=== PATIENT | female | born 1965 | race Caucasian/White ===

== ENCOUNTER 2016-09-22 08:06 | Day surgery (SDC) | payer MEDICAID ==
[2016-09-20 16:13] VITALS: BP 141/73
[2016-09-20 16:39] LABS: BLOOD UREA NITROGEN 14 mg/dL (7-18)
[2016-09-20 16:42] LABS: ASPARTATE AMINO TRANSFERASE 26 U/L (15-37)
[~2016-09-22] VITALS: Ht 175.3 cm; Wt 90.0 kg
[~2016-09-22 08:06] MED LIST: ALBU18HF INH; ALBU18HF PO; ALEN70TA5 PO; BUDE10.2 INH; CHOL200024 PO; CYCL5TAB PO; DUONEB PO; ESCI10TA PO; ESCI20TA10 PO; ESTR0.5T PO; ESTR2TAB PO; FEXO180T5 PO; FLUT1AER PO; GABA600T2 PO; HYDR12.58 PO; HYDR50CA PO; MELO-184 PO; OMEP-110 PO; OMEP20CA9 PO; OXYC5CAP4 PO; QUET300T5 PO; TRAM50TA2 PO; TRAZ100T15 PO; TRAZ50TA18 PO
[2016-09-22 08:57] VITALS: BP 141/73
[2016-09-22] MEDS ORDERED: LACTATED RINGERS 1,000 ML IV SCH (09:03)
[2016-09-22] MEDS ORDERED: FENTANYL PF 250 MCG/5ML ONE (09:34)
[2016-09-22] MEDS ORDERED: HYDROcodone/APAP 5/325 TABLET PO STA (09:34)
[2016-09-22] MEDS ORDERED: MIDAZOLAM 1 MG/ML, 2ML ONE (09:34)
[2016-09-22] MEDS ORDERED: BUPIVACAINE/PF 0.5% ONE (10:01)
[2016-09-22] MEDS ORDERED: LIDOCAINE/PF 1%, 30ML ONE (10:01)
[2016-09-22] MEDS ORDERED: PROPOFOL 10 MG/ML, 20ML ONE (10:11)
[2016-09-22] MEDS ORDERED: PHENYLEPHRINE 10 MG/ML ONE (10:11)
[2016-09-22] MEDS ORDERED: CEFAZOLIN 1,000 MG ONE (10:11)
[2016-09-22] MEDS ORDERED: DEXAMETHASONE 4 MG/ML, 1ML ONE (10:11)
[2016-09-22] MEDS ORDERED: ONDANSETRON 2MG/ML, 2ML ONE (10:11)
[2016-09-22] MEDS ORDERED: HYDROmorphone 2 MG/ML, 1ML ONE (11:52)
[2016-09-22] MEDS ORDERED: OXYcodone 5 MG/5 ML ORAL.SOL UDC ONE (11:52)
[2016-09-22] MEDS ORDERED: FENTANYL PF 100 MCG/2ML ONE (11:52)
[2016-09-22] MEDS: HYDROmorphone 1 MG/ML, 1ML IV PRN ×4 (11:54→12:45)
[2016-09-22] MEDS: FENTANYL PF 100 MCG/2ML IV PRN ×2 (11:56→12:17)
[2016-09-22] MEDS ORDERED: ACETAMINOPHEN 325 MG TABLET PO PRN (12:00)
[2016-09-22] MEDS ORDERED: PROMETHAZINE 25 MG/ML, 1ML IV PRN (12:00)
[2016-09-22] MEDS ORDERED: MIDAZOLAM 1 MG/ML, 2ML IV PRN (12:00)
[2016-09-22] MEDS ORDERED: hydrALAzine 20 MG/ML, 1ML IV PRN (12:00)
[2016-09-22] MEDS ORDERED: OXYcodone 5 MG/5 ML ORAL.SOL UDC PO PRN (12:00)
[2016-09-22] MEDS ORDERED: METOCLOPRAMIDE 5 MG/ML, 2ML IV PRN (12:00)
[2016-09-22] MEDS ORDERED: ONDANSETRON 2MG/ML, 2ML IVPush PRN (12:00)
[2016-09-22] MEDS ORDERED: MEPERIDINE/PF 25MG/0.5ML IVPush PRN (12:00)
[2016-09-22] MEDS ORDERED: LABETALOL 5MG/ML, 20ML IV PRN (12:00)
[2016-09-22] MEDS ORDERED: ACETAMINOPHEN 325 MG TABLET ONE (12:01)
[2016-09-22] MEDS ORDERED: ACETAMINOPHEN 650 MG/20.3 ML UDC ONE (12:01)
[2016-09-22] MEDS ORDERED: PROMETHAZINE 25 MG/ML, 1ML ONE (12:05)
== END 2016-09-22 14:35 ==
LOC: OUT 08:06
PROVIDERS: ATTEND Orthopaedic Surgery Foot and Ankle Surgery
DX: S92.322K Displaced fracture of second metatarsal bone, left foot, subsequent encounter for fracture with nonunion (principal); S92.332K Displaced fracture of third metatarsal bone, left foot, subsequent encounter for fracture with nonunion; F17.210 Nicotine dependence, cigarettes, uncomplicated; J45.909 Unspecified asthma, uncomplicated; X58.XXXD Exposure to other specified factors, subsequent encounter; Z90.710 Acquired absence of both cervix and uterus
CPT/HCPCS: 28322; 36415; 73630; 76001; 80053; C1713; J0690; J1100; J1170; J2250; J2370; J2405; J2550; J2704; J3010; J3490; J7120

== ENCOUNTER 2017-02-17 14:46 | Inpatient (IN) | payer MEDICAID ==
[~2017-02-17] VITALS: Ht 175.3 cm; Wt 98.8 kg
[~2017-02-17 14:46] MED LIST changes: +FEXO180T15 PO; -FEXO180T5 PO; -MELO-184 PO; +MELO15TA24 PO; +OXYC5CAP2 PO; -OXYC5CAP4 PO
[2017-02-17 15:23] LABS: HEMATOCRIT 42.3 % (34.6-47.8); HEMOGLOBIN 14.6 g/dL (11.7-16.4); WHITE BLOOD COUNT 6.9 x10^3/uL (3.4-10)
[2017-02-17 15:30] LABS: BLOOD UREA NITROGEN 11 mg/dL (7-18)
[2017-02-17] MEDS ORDERED: SODIUM CHLORIDE FLUSH 10ML SYR IVF ONE ×2 (15:30→18:30)
[2017-02-17] MEDS ORDERED: SODIUM CHLORIDE 0.9% 1,000ML IVBOLUS ONE (15:30)
[2017-02-17 15:31] LABS: ASPARTATE AMINO TRANSFERASE 18 U/L (15-37)
[2017-02-17 15:37] LABS: ACETAMINOPHEN < 2 mcg/mL (10-30)
[2017-02-17 16:08] LABS: DAU SCREEN DISCLAIMER
[2017-02-17] MEDS ORDERED: SODIUM CHLORIDE 0.9% 1,000 ML IV ONE ×2 (16:23→18:00)
[2017-02-17] MEDS ORDERED: MAALOX/HYOSCYAMINE/LIDOCAINE 45 ML BTL ONE (16:26)
[2017-02-17] MEDS ORDERED: ONDANSETRON 2MG/ML, 2ML ONE ×2 (16:26→19:29)
[2017-02-17] MEDS ORDERED: MAALOX/HYOSCYAMINE/LIDOCAINE 45 ML BTL PO ONE (16:30)
[2017-02-17] MEDS ORDERED: ONDANSETRON ODT 4 MG PO ONE (16:30)
[2017-02-17] MEDS ORDERED: DEXTROSE 50%, 50ML SYRINGE IVPush PRN (17:30)
[2017-02-17] MEDS ORDERED: DEXTROSE 4 GM TAB.CHEW PO PRN (17:30)
[2017-02-17] MEDS ORDERED: GLUCAGON 1 MG IM PRN (17:30)
[2017-02-17] MEDS ORDERED: LORazepam 2 MG/ML, 1ML IV PRN ×2 (17:30)
[2017-02-17] MEDS ORDERED: LORazepam 1MG TABLET PO PRN ×2 (17:30)
[2017-02-17] MEDS: SODIUM CHLORIDE 0.9% 1,000 ML IV SCH (17:32)
[2017-02-17] MEDS ORDERED: ALBUTEROL SULFATE 2.5 MG/3 ML ONE (18:59)
[2017-02-17] MEDS ORDERED: ENOXAPARIN 40 MG/0.4 ML ONE (19:09)
[2017-02-17] MEDS ORDERED: LORazepam 2 MG/ML, 1ML ONE (19:10)
[2017-02-17] MEDS: LORazepam 2 MG/ML, 1ML IV PRN ×2 (19:15→22:14)
[2017-02-17] MEDS: ENOXAPARIN 40 MG/0.4 ML SQ SCH (19:15)
[2017-02-17] MEDS: ONDANSETRON 2MG/ML, 2ML IV PRN (19:35)
[2017-02-17] MEDS: ALBUTEROL SULFATE 2.5 MG/3 ML NPPB SCH (20:00)
[2017-02-17] MEDS: POTASSIUM CHLORIDE 20 MEQ, MAGNESIUM SULFATE 1 GM, FOLIC ACID 1 MG, THIAMINE 100 MG, MV... IV SCH (20:23)
[2017-02-17] MEDS: SODIUM CHLORIDE FLUSH 10ML SYR IVF SCH (21:00)
[2017-02-17] MEDS ORDERED: ALBUTEROL SULFATE 2.5 MG/3 ML NPPB SCH (21:00)
[2017-02-17] MEDS ORDERED: PLEASE ENTER ALLERGIES MC SCH ×2 (21:00)
[2017-02-17] MEDS ORDERED: MAGNESIUM SULFATE PMX 2GM/50ML 50 ML IV ONE (22:00)
[2017-02-17 22:13] LABS: ASPARTATE AMINO TRANSFERASE 16 U/L (15-37); BLOOD UREA NITROGEN 10 mg/dL (7-18)
[2017-02-17 22:21] VITALS: BP 123/56
[2017-02-17 22:33] VITALS: BP 123/56
[2017-02-17] MEDS: PANTOPRAZOLE 20MG TABLET PO SCH (23:49)
[2017-02-17] MEDS: GABAPENTIN 300 MG CAPSULE PO SCH (23:57)
[2017-02-18 01:44] VITALS: BP 138/83
[2017-02-18] MEDS: ONDANSETRON 2MG/ML, 2ML IV PRN ×4 (01:52→21:16)
[2017-02-18] MEDS: LORazepam 2 MG/ML, 1ML IV PRN ×7 (01:52→20:17)
[2017-02-18] MEDS: ALBUTEROL SULFATE 2.5 MG/3 ML NPPB PRN (04:51)
[2017-02-18 05:31] LABS: HEMATOCRIT 38.8 % (34.6-47.8); HEMOGLOBIN 13.2 g/dL (11.7-16.4)
[2017-02-18 05:41] LABS: ASPARTATE AMINO TRANSFERASE 17 U/L (15-37); BLOOD UREA NITROGEN 10 mg/dL (7-18)
[2017-02-18] MEDS: ALBUTEROL SULFATE 2.5 MG/3 ML NPPB SCH ×3 (07:00→20:47)
[2017-02-18] MEDS: SODIUM CHLORIDE FLUSH 10ML SYR IVF SCH ×2 (08:42→20:16)
[2017-02-18] MEDS: PANTOPRAZOLE 20MG TABLET PO SCH ×2 (08:42→17:18)
[2017-02-18] MEDS: GABAPENTIN 300 MG CAPSULE PO SCH ×2 (08:43→20:16)
[2017-02-18 08:54] VITALS: BP 144/88
[2017-02-18] MEDS ORDERED: POTASSIUM CHLORIDE 20 MEQ TAB.ER.PRT PO ONE (11:30)
[2017-02-18] MEDS: KETOROLAC 30 MG/1 ML IVPush PRN ×2 (11:40→18:41)
[2017-02-18] MEDS: SODIUM CHLORIDE 0.9% 1,000 ML IV SCH (11:42)
[2017-02-18 12:23] VITALS: BP 136/80
[2017-02-18] MEDS: METHOCARBAMOL 500 MG TABLET PO SCH ×2 (15:10→20:16)
[2017-02-18 16:58] VITALS: BP 125/95
[2017-02-18] MEDS: ENOXAPARIN 40 MG/0.4 ML SQ SCH (18:42)
[2017-02-18] MEDS: POTASSIUM CHLORIDE 20 MEQ, MAGNESIUM SULFATE 1 GM, FOLIC ACID 1 MG, THIAMINE 100 MG, MV... IV SCH (18:42)
[2017-02-18 20:21] VITALS: BP 134/56
[2017-02-18] MEDS ORDERED: DIAZEPAM 10 MG TABLET PO ONE (22:00)
[2017-02-18] MEDS ORDERED: DIAZEPAM 5 MG TABLET PO ONE (22:00)
[2017-02-18] MEDS: BACLOFEN 10 MG TABLET PO SCH (22:09)
[2017-02-18 22:11] VITALS: BP 128/79
[2017-02-19 01:59] VITALS: BP 134/88
[2017-02-19] MEDS ORDERED: DIAZEPAM 5 MG TABLET ONE ×3 (03:31→16:16)
[2017-02-19] MEDS: ONDANSETRON 2MG/ML, 2ML IV PRN ×3 (03:35→17:10)
[2017-02-19] MEDS: DIAZEPAM 10 MG TABLET PO PRN ×4 (03:39→21:13)
[2017-02-19] MEDS: ALBUTEROL SULFATE 2.5 MG/3 ML NPPB PRN (03:55)
[2017-02-19] MEDS: SODIUM CHLORIDE 0.9% 1,000 ML IV SCH ×2 (04:54→17:32)
[2017-02-19 05:03] VITALS: BP 125/69
[2017-02-19] MEDS: METHOCARBAMOL 500 MG TABLET PO SCH ×2 (05:14→10:32)
[2017-02-19 06:18] LABS: BLOOD UREA NITROGEN 8 mg/dL (7-18)
[2017-02-19 07:07] VITALS: BP 132/85
[2017-02-19] MEDS: ALBUTEROL SULFATE 2.5 MG/3 ML NPPB SCH ×3 (07:30→20:00)
[2017-02-19] MEDS: GABAPENTIN 300 MG CAPSULE PO SCH ×2 (08:20→21:13)
[2017-02-19] MEDS: PANTOPRAZOLE 20MG TABLET PO SCH ×2 (08:20→17:10)
[2017-02-19] MEDS: BACLOFEN 10 MG TABLET PO SCH ×2 (08:20→21:13)
[2017-02-19] MEDS: SODIUM CHLORIDE FLUSH 10ML SYR IVF SCH ×2 (08:21→21:14)
[2017-02-19] MEDS: LORazepam 0.5MG TABLET PO PRN ×2 (10:38→18:32)
[2017-02-19 16:20] VITALS: BP 123/81
[2017-02-19] MEDS: ENOXAPARIN 40 MG/0.4 ML SQ SCH (17:10)
[2017-02-19] MEDS: POTASSIUM CHLORIDE 20 MEQ, MAGNESIUM SULFATE 1 GM, FOLIC ACID 1 MG, THIAMINE 100 MG, MV... IV SCH (17:49)
[2017-02-19 19:31] VITALS: BP 127/85
[2017-02-19] MEDS: DOXYCYCLINE 100MG TABLET PO SCH (21:13)
[2017-02-19] MEDS: methylPREDNISolone SOD SUCC 125 MG/2 ML IVPush SCH (21:15)
[2017-02-20] MEDS: ONDANSETRON 2MG/ML, 2ML IV PRN ×3 (00:32→13:11)
[2017-02-20] MEDS: LORazepam 1MG TABLET PO PRN ×4 (00:32→18:36)
[2017-02-20] MEDS: MAALOX/HYOSCYAMINE/LIDOCAINE 45 ML BTL PO PRN ×2 (00:47→21:26)
[2017-02-20] MEDS: ALBUTEROL SULFATE 2.5 MG/3 ML NPPB PRN (01:00)
[2017-02-20 01:52] VITALS: BP 149/97
[2017-02-20 01:53] VITALS: BP 111/72
[2017-02-20] MEDS: SODIUM CHLORIDE 0.9% 1,000 ML IV SCH ×2 (03:04→13:11)
[2017-02-20] MEDS: DIAZEPAM 10 MG TABLET PO PRN ×4 (03:05→21:23)
[2017-02-20] MEDS: methylPREDNISolone SOD SUCC 125 MG/2 ML IVPush SCH ×3 (03:05→21:23)
[2017-02-20 05:26] LABS: ASPARTATE AMINO TRANSFERASE 11 U/L (15-37); BLOOD UREA NITROGEN 14 mg/dL (7-18)
[2017-02-20] MEDS: ALBUTEROL SULFATE 2.5 MG/3 ML NPPB SCH ×6 (06:35→23:50)
[2017-02-20 07:25] VITALS: BP 157/74
[2017-02-20] MEDS: FLUTICASONE/VILANTEROL 100-25MCG/INH INH SCH (08:49)
[2017-02-20] MEDS: PANTOPRAZOLE 20MG TABLET PO SCH ×2 (09:00→17:00)
[2017-02-20] MEDS: SODIUM CHLORIDE FLUSH 10ML SYR IVF SCH ×2 (09:00→21:23)
[2017-02-20] MEDS: DOXYCYCLINE 100MG TABLET PO SCH ×2 (09:01→21:24)
[2017-02-20] MEDS: BACLOFEN 10 MG TABLET PO SCH ×2 (09:01→21:24)
[2017-02-20] MEDS: GABAPENTIN 300 MG CAPSULE PO SCH ×2 (09:01→21:24)
[2017-02-20 12:42] VITALS: BP 140/89
[2017-02-20] MEDS: POTASSIUM CHLORIDE 20 MEQ, MAGNESIUM SULFATE 1 GM, FOLIC ACID 1 MG, THIAMINE 100 MG, MV... IV SCH (18:36)
[2017-02-20 19:43] VITALS: BP 152/91
[2017-02-20] MEDS: ENOXAPARIN 40 MG/0.4 ML SQ SCH (21:23)
[2017-02-21] MEDS: LORazepam 1MG TABLET PO PRN (01:49)
[2017-02-21] MEDS: methylPREDNISolone SOD SUCC 125 MG/2 ML IVPush SCH ×4 (02:39→21:27)
[2017-02-21 02:49] VITALS: BP 148/82
[2017-02-21] MEDS: ALBUTEROL SULFATE 2.5 MG/3 ML NPPB SCH ×2 (03:00→07:05)
[2017-02-21 03:19] VITALS: BP 134/84
[2017-02-21 05:22] LABS: ASPARTATE AMINO TRANSFERASE 8 U/L (15-37); BLOOD UREA NITROGEN 17 mg/dL (7-18)
[2017-02-21 07:17] VITALS: BP 119/85
[2017-02-21] MEDS: GABAPENTIN 300 MG CAPSULE PO SCH ×2 (08:20→21:27)
[2017-02-21] MEDS: DOXYCYCLINE 100MG TABLET PO SCH ×2 (08:20→21:27)
[2017-02-21] MEDS: PANTOPRAZOLE 20MG TABLET PO SCH ×2 (08:20→16:10)
[2017-02-21] MEDS: ONDANSETRON 2MG/ML, 2ML IV PRN ×3 (08:20→21:29)
[2017-02-21] MEDS: BACLOFEN 10 MG TABLET PO SCH ×2 (08:20→21:27)
[2017-02-21] MEDS: DIAZEPAM 10 MG TABLET PO PRN ×3 (08:20→21:28)
[2017-02-21] MEDS: SODIUM CHLORIDE FLUSH 10ML SYR IVF SCH ×2 (08:21→21:00)
[2017-02-21] MEDS: FLUTICASONE/VILANTEROL 100-25MCG/INH INH SCH (10:23)
[2017-02-21] MEDS: ALBUTEROL/IPRATROPIUM 2.5MG/0.5MG, 3 ML NPPB SCH ×2 (10:50→14:30)
[2017-02-21 13:51] VITALS: BP 157/81
[2017-02-21] MEDS: MULTIVITAMIN 1 TABLET PO SCH (15:00)
[2017-02-21] MEDS: FOLIC ACID 1 MG TABLET PO SCH (15:00)
[2017-02-21] MEDS: THIAMINE 100MG TABLET PO SCH (15:00)
[2017-02-21] MEDS: MUPIROCIN OINT 2%, 22GM TP SCH ×2 (16:10→21:26)
[2017-02-21] MEDS ORDERED: LORazepam 2 MG/ML, 1ML IM PRN (17:00)
[2017-02-21] MEDS ORDERED: LORazepam 2 MG/ML, 1ML IM ONE (17:00)
[2017-02-21] MEDS ORDERED: LORazepam 2 MG/ML, 1ML IVPush ONE (17:00)
[2017-02-21] MEDS ORDERED: SODIUM CHLORIDE 0.9% 1,000 ML IV SCH ×2 (18:00)
[2017-02-21 19:03] VITALS: BP 145/94
[2017-02-21] MEDS ORDERED: LORazepam 2 MG/ML, 1ML IV PRN (21:00)
[2017-02-21] MEDS: ENOXAPARIN 40 MG/0.4 ML SQ SCH (21:27)
[2017-02-21] MEDS: MAGNESIUM OXIDE 400 MG TABLET PO SCH (21:27)
[2017-02-22 02:08] VITALS: BP 137/96
[2017-02-22] MEDS: methylPREDNISolone SOD SUCC 125 MG/2 ML IVPush SCH ×4 (02:45→21:32)
[2017-02-22 06:25] VITALS: BP 135/74
[2017-02-22] MEDS: ALBUTEROL/IPRATROPIUM 2.5MG/0.5MG, 3 ML NPPB SCH ×4 (07:00→19:55)
[2017-02-22 09:10] LABS: ASPARTATE AMINO TRANSFERASE 8 U/L (15-37); BLOOD UREA NITROGEN 19 mg/dL (7-18)
[2017-02-22] MEDS: FLUTICASONE/VILANTEROL 100-25MCG/INH INH SCH (09:25)
[2017-02-22] MEDS: MUPIROCIN OINT 2%, 22GM TP SCH ×3 (09:25→21:34)
[2017-02-22] MEDS: GABAPENTIN 300 MG CAPSULE PO SCH ×3 (09:26→21:32)
[2017-02-22] MEDS: MULTIVITAMIN 1 TABLET PO SCH (09:26)
[2017-02-22] MEDS: ONDANSETRON 2MG/ML, 2ML IV PRN ×2 (09:26→15:45)
[2017-02-22] MEDS: BACLOFEN 10 MG TABLET PO SCH ×2 (09:26→21:31)
[2017-02-22] MEDS: FOLIC ACID 1 MG TABLET PO SCH (09:26)
[2017-02-22] MEDS: MAGNESIUM OXIDE 400 MG TABLET PO SCH ×2 (09:26→21:31)
[2017-02-22] MEDS: PANTOPRAZOLE 20MG TABLET PO SCH ×2 (09:26→17:05)
[2017-02-22] MEDS: SODIUM CHLORIDE FLUSH 10ML SYR IVF SCH ×2 (09:26→21:00)
[2017-02-22] MEDS: DOXYCYCLINE 100MG TABLET PO SCH ×2 (09:26→21:33)
[2017-02-22] MEDS: THIAMINE 100MG TABLET PO SCH (09:26)
[2017-02-22] MEDS: DIAZEPAM 10 MG TABLET PO PRN (10:55)
[2017-02-22] MEDS ORDERED: POTASSIUM CHLORIDE 20 MEQ TAB.ER.PRT PO ONE (11:30)
[2017-02-22] MEDS ORDERED: FUROSEMIDE 40 MG/4 ML IV ONE (11:30)
[2017-02-22] MEDS: QUETIAPINE 25MG TABLET PO PRN (15:00)
[2017-02-22 15:11] VITALS: BP 143/94
[2017-02-22] MEDS: LORazepam 2 MG/ML, 1ML IV PRN ×2 (17:09→21:34)
[2017-02-22 17:10] VITALS: BP 136/82
[2017-02-22 19:12] VITALS: BP 121/77
[2017-02-22] MEDS ORDERED: ZOLPIDEM 5MG TABLET PO SCH (21:00)
[2017-02-22] MEDS: QUETIAPINE 100MG TABLET PO SCH (21:33)
[2017-02-22] MEDS: ENOXAPARIN 40 MG/0.4 ML SQ SCH (21:34)
[2017-02-23 00:22] VITALS: BP 117/79
[2017-02-23] MEDS: ZOLPIDEM 5MG TABLET PO PRN ×2 (00:31→21:37)
[2017-02-23] MEDS: methylPREDNISolone SOD SUCC 125 MG/2 ML IVPush SCH ×4 (02:59→18:24)
[2017-02-23] MEDS: ONDANSETRON 2MG/ML, 2ML IV PRN ×2 (03:27→15:21)
[2017-02-23] MEDS: LORazepam 2 MG/ML, 1ML IV PRN ×4 (03:27→18:24)
[2017-02-23 05:52] LABS: ASPARTATE AMINO TRANSFERASE 8 U/L (15-37); BLOOD UREA NITROGEN 24 mg/dL (7-18)
[2017-02-23] MEDS: QUETIAPINE 25MG TABLET PO PRN ×2 (06:17→17:07)
[2017-02-23] MEDS: ALBUTEROL/IPRATROPIUM 2.5MG/0.5MG, 3 ML NPPB SCH ×4 (07:00→19:04)
[2017-02-23 07:08] VITALS: BP 129/80
[2017-02-23] MEDS: MULTIVITAMIN 1 TABLET PO SCH (08:21)
[2017-02-23] MEDS: DOXYCYCLINE 100MG TABLET PO SCH ×2 (08:21→21:38)
[2017-02-23] MEDS: MAGNESIUM OXIDE 400 MG TABLET PO SCH ×2 (08:21→21:36)
[2017-02-23] MEDS: GABAPENTIN 300 MG CAPSULE PO SCH (08:21)
[2017-02-23] MEDS: BACLOFEN 10 MG TABLET PO SCH ×2 (08:21→21:36)
[2017-02-23] MEDS: FOLIC ACID 1 MG TABLET PO SCH (08:21)
[2017-02-23] MEDS: THIAMINE 100MG TABLET PO SCH (08:21)
[2017-02-23] MEDS: PANTOPRAZOLE 20MG TABLET PO SCH ×2 (08:22→16:01)
[2017-02-23] MEDS: FLUTICASONE/VILANTEROL 100-25MCG/INH INH SCH (08:22)
[2017-02-23] MEDS: SODIUM CHLORIDE FLUSH 10ML SYR IVF SCH ×2 (08:22→21:00)
[2017-02-23] MEDS: MUPIROCIN OINT 2%, 22GM TP SCH ×3 (08:22→21:38)
[2017-02-23 14:00] VITALS: BP 139/76
[2017-02-23] MEDS: GABAPENTIN 400 MG CAPSULE PO SCH ×2 (16:01→21:37)
[2017-02-23 19:22] VITALS: BP 158/82
[2017-02-23] MEDS: QUETIAPINE 100MG TABLET PO SCH (21:37)
[2017-02-23] MEDS: ENOXAPARIN 40 MG/0.4 ML SQ SCH (21:38)
[2017-02-23] MEDS: ALBUTEROL SULFATE 2.5 MG/3 ML NPPB PRN (22:35)
[2017-02-24] MEDS: methylPREDNISolone SOD SUCC 125 MG/2 ML IVPush SCH ×4 (01:07→18:23)
[2017-02-24] MEDS: LORazepam 2 MG/ML, 1ML IV PRN ×5 (01:08→21:54)
[2017-02-24 01:22] VITALS: BP 121/86
[2017-02-24] MEDS: ONDANSETRON 2MG/ML, 2ML IV PRN ×3 (04:52→18:06)
[2017-02-24 06:25] VITALS: BP 132/85
[2017-02-24] MEDS: ALBUTEROL/IPRATROPIUM 2.5MG/0.5MG, 3 ML NPPB SCH ×4 (06:51→18:57)
[2017-02-24] MEDS: PANTOPRAZOLE 20MG TABLET PO SCH ×2 (08:02→15:37)
[2017-02-24] MEDS: FLUTICASONE/VILANTEROL 100-25MCG/INH INH SCH (08:03)
[2017-02-24] MEDS: DOXYCYCLINE 100MG TABLET PO SCH ×2 (08:03→20:54)
[2017-02-24] MEDS: QUETIAPINE 25MG TABLET PO PRN ×2 (08:03→14:46)
[2017-02-24] MEDS: MAGNESIUM OXIDE 400 MG TABLET PO SCH ×2 (08:03→20:54)
[2017-02-24] MEDS: THIAMINE 100MG TABLET PO SCH (08:03)
[2017-02-24] MEDS: SODIUM CHLORIDE FLUSH 10ML SYR IVF SCH ×2 (08:03→21:00)
[2017-02-24] MEDS: FOLIC ACID 1 MG TABLET PO SCH (08:03)
[2017-02-24] MEDS: GABAPENTIN 400 MG CAPSULE PO SCH ×3 (08:03→20:54)
[2017-02-24] MEDS: BACLOFEN 10 MG TABLET PO SCH ×2 (08:03→20:54)
[2017-02-24] MEDS: MULTIVITAMIN 1 TABLET PO SCH (08:04)
[2017-02-24] MEDS: MUPIROCIN OINT 2%, 22GM TP SCH ×3 (08:04→21:00)
[2017-02-24 13:23] VITALS: BP 147/67
[2017-02-24] MEDS: MAALOX/HYOSCYAMINE/LIDOCAINE 45 ML BTL PO PRN (14:47)
[2017-02-24 15:35] VITALS: BP 139/84
[2017-02-24 19:06] VITALS: BP 151/99
[2017-02-24] MEDS: ENOXAPARIN 40 MG/0.4 ML SQ SCH (21:00)
[2017-02-24] MEDS: ZOLPIDEM 5MG TABLET PO PRN (21:53)
[2017-02-24] MEDS: QUETIAPINE 100MG TABLET PO SCH (21:53)
[2017-02-25] MEDS: methylPREDNISolone SOD SUCC 125 MG/2 ML IVPush SCH ×2 (00:32→06:01)
[2017-02-25 04:16] VITALS: BP 152/101
[2017-02-25] MEDS: LORazepam 2 MG/ML, 1ML IV PRN (04:43)
[2017-02-25] MEDS: ONDANSETRON 2MG/ML, 2ML IV PRN (04:43)
[2017-02-25 07:01] VITALS: BP_SYST 162; BP_SYST 168; BP_DIAS 105; BP_DIAS 95
[2017-02-25] MEDS: BACLOFEN 10 MG TABLET PO SCH ×2 (07:18→20:22)
[2017-02-25] MEDS: QUETIAPINE 25MG TABLET PO PRN ×2 (07:18→12:02)
[2017-02-25] MEDS: THIAMINE 100MG TABLET PO SCH (07:18)
[2017-02-25] MEDS: PANTOPRAZOLE 20MG TABLET PO SCH ×2 (07:18→18:01)
[2017-02-25] MEDS: DOXYCYCLINE 100MG TABLET PO SCH ×2 (07:18→20:23)
[2017-02-25] MEDS: GABAPENTIN 400 MG CAPSULE PO SCH ×3 (07:18→20:23)
[2017-02-25] MEDS: MULTIVITAMIN 1 TABLET PO SCH (07:18)
[2017-02-25] MEDS: MAGNESIUM OXIDE 400 MG TABLET PO SCH ×2 (07:18→20:22)
[2017-02-25] MEDS: FLUTICASONE/VILANTEROL 100-25MCG/INH INH SCH (07:19)
[2017-02-25] MEDS: FOLIC ACID 1 MG TABLET PO SCH (07:19)
[2017-02-25] MEDS: MUPIROCIN OINT 2%, 22GM TP SCH ×3 (07:19→20:23)
[2017-02-25] MEDS: SODIUM CHLORIDE FLUSH 10ML SYR IVF SCH ×2 (07:19→21:00)
[2017-02-25] MEDS: ALBUTEROL/IPRATROPIUM 2.5MG/0.5MG, 3 ML NPPB SCH ×4 (07:20→19:18)
[2017-02-25] MEDS: ONDANSETRON ODT 4 MG PO PRN (12:01)
[2017-02-25] MEDS: methylPREDNISolone SOD SUCC 40 MG/ML IV SCH ×2 (12:02→18:01)
[2017-02-25 12:48] VITALS: BP 115/53
[2017-02-25] MEDS ORDERED: LORazepam 1MG TABLET ONE (14:05)
[2017-02-25] MEDS: LORazepam 0.5MG TABLET PO PRN ×2 (14:13→21:10)
[2017-02-25 20:06] VITALS: BP 168/97
[2017-02-25] MEDS: QUETIAPINE 100MG TABLET PO SCH (20:23)
[2017-02-25] MEDS: ENOXAPARIN 40 MG/0.4 ML SQ SCH (20:23)
[2017-02-25] MEDS: ZOLPIDEM 5MG TABLET PO PRN (20:24)
[2017-02-25] MEDS: MAALOX/HYOSCYAMINE/LIDOCAINE 45 ML BTL PO PRN (20:25)
[2017-02-26] MEDS: methylPREDNISolone SOD SUCC 40 MG/ML IV SCH ×4 (00:06→20:38)
[2017-02-26] MEDS: LORazepam 0.5MG TABLET PO PRN ×5 (01:28→22:15)
[2017-02-26 01:29] VITALS: BP 127/79
[2017-02-26 07:08] VITALS: BP 173/110
[2017-02-26] MEDS: PANTOPRAZOLE 20MG TABLET PO SCH ×2 (08:20→17:10)
[2017-02-26] MEDS: BACLOFEN 10 MG TABLET PO SCH ×2 (08:20→21:17)
[2017-02-26] MEDS: MAGNESIUM OXIDE 400 MG TABLET PO SCH ×2 (08:21→20:39)
[2017-02-26] MEDS: GABAPENTIN 400 MG CAPSULE PO SCH ×4 (08:21→20:39)
[2017-02-26] MEDS: DOXYCYCLINE 100MG TABLET PO SCH ×2 (08:22→20:39)
[2017-02-26] MEDS: SODIUM CHLORIDE FLUSH 10ML SYR IVF SCH ×2 (08:22→20:38)
[2017-02-26] MEDS: MULTIVITAMIN 1 TABLET PO SCH (08:22)
[2017-02-26] MEDS: FOLIC ACID 1 MG TABLET PO SCH (08:22)
[2017-02-26] MEDS: THIAMINE 100MG TABLET PO SCH (08:22)
[2017-02-26] MEDS: FLUTICASONE/VILANTEROL 100-25MCG/INH INH SCH (08:23)
[2017-02-26] MEDS: ALBUTEROL/IPRATROPIUM 2.5MG/0.5MG, 3 ML NPPB SCH ×4 (09:50→20:00)
[2017-02-26] MEDS ORDERED: LORazepam 1MG TABLET ONE (11:11)
[2017-02-26] MEDS: ONDANSETRON ODT 4 MG PO PRN (11:27)
[2017-02-26] MEDS: MUPIROCIN OINT 2%, 22GM TP SCH ×3 (11:29→20:39)
[2017-02-26 13:31] VITALS: BP 131/93
[2017-02-26] MEDS: QUETIAPINE 25MG TABLET PO PRN (15:04)
[2017-02-26 18:37] VITALS: BP 133/98
[2017-02-26] MEDS: ENOXAPARIN 40 MG/0.4 ML SQ SCH (20:38)
[2017-02-26] MEDS: QUETIAPINE 100MG TABLET PO SCH (20:39)
[2017-02-26] MEDS: ZOLPIDEM 5MG TABLET PO PRN (20:40)
[2017-02-26] MEDS: MAALOX/HYOSCYAMINE/LIDOCAINE 45 ML BTL PO PRN (20:40)
[2017-02-26] MEDS ORDERED: PLEASE ENTER ALLERGIES MC SCH ×2 (21:00)
[2017-02-27 01:28] VITALS: BP 136/80
[2017-02-27] MEDS: methylPREDNISolone SOD SUCC 40 MG/ML IV SCH ×2 (03:11→08:10)
[2017-02-27] MEDS: QUETIAPINE 25MG TABLET PO PRN ×3 (05:01→16:33)
[2017-02-27 06:39] VITALS: BP 142/100
[2017-02-27] MEDS: ALBUTEROL/IPRATROPIUM 2.5MG/0.5MG, 3 ML NPPB SCH ×4 (06:48→18:31)
[2017-02-27] MEDS: DOXYCYCLINE 100MG TABLET PO SCH ×2 (08:11→20:30)
[2017-02-27] MEDS: THIAMINE 100MG TABLET PO SCH (08:11)
[2017-02-27] MEDS: BACLOFEN 10 MG TABLET PO SCH ×2 (08:11→20:30)
[2017-02-27] MEDS: MULTIVITAMIN 1 TABLET PO SCH (08:11)
[2017-02-27] MEDS: GABAPENTIN 400 MG CAPSULE PO SCH ×3 (08:11→20:30)
[2017-02-27] MEDS: PANTOPRAZOLE 20MG TABLET PO SCH ×2 (08:11→16:33)
[2017-02-27] MEDS: FLUTICASONE/VILANTEROL 100-25MCG/INH INH SCH (08:12)
[2017-02-27] MEDS: SODIUM CHLORIDE FLUSH 10ML SYR IVF SCH ×2 (08:14→20:29)
[2017-02-27] MEDS: MUPIROCIN OINT 2%, 22GM TP SCH ×3 (08:25→20:31)
[2017-02-27] MEDS: MAGNESIUM OXIDE 400 MG TABLET PO SCH ×2 (08:40→20:30)
[2017-02-27] MEDS: FOLIC ACID 1 MG TABLET PO SCH (08:40)
[2017-02-27 12:55] VITALS: BP 135/101
[2017-02-27] MEDS: LORazepam 0.5MG TABLET PO PRN (19:20)
[2017-02-27 20:24] VITALS: BP 141/106
[2017-02-27] MEDS: ENOXAPARIN 40 MG/0.4 ML SQ SCH (20:29)
[2017-02-27] MEDS: ZOLPIDEM 5MG TABLET PO PRN (20:31)
[2017-02-27] MEDS: QUETIAPINE 100MG TABLET PO SCH (20:31)
[2017-02-27] MEDS ORDERED: GABAPENTIN 400 MG CAPSULE PO SCH (21:00)
[2017-02-28] MEDS: QUETIAPINE 25MG TABLET PO PRN ×3 (00:40→14:20)
[2017-02-28] MEDS: ALBUTEROL SULFATE 2.5 MG/3 ML NPPB PRN (00:46)
[2017-02-28] MEDS ORDERED: MAALOX/HYOSCYAMINE/LIDOCAINE 45 ML BTL PO PRN (01:00)
[2017-02-28 01:01] VITALS: BP 122/70
[2017-02-28] MEDS: LORazepam 0.5MG TABLET PO PRN (03:29)
[2017-02-28] MEDS: ALBUTEROL/IPRATROPIUM 2.5MG/0.5MG, 3 ML NPPB SCH ×3 (07:18→15:00)
[2017-02-28 07:42] VITALS: BP 128/92
[2017-02-28] MEDS: PANTOPRAZOLE 20MG TABLET PO SCH (09:04)
[2017-02-28] MEDS: BACLOFEN 10 MG TABLET PO SCH (09:04)
[2017-02-28] MEDS: MULTIVITAMIN 1 TABLET PO SCH (09:05)
[2017-02-28] MEDS: FOLIC ACID 1 MG TABLET PO SCH (09:05)
[2017-02-28] MEDS: MAGNESIUM OXIDE 400 MG TABLET PO SCH (09:05)
[2017-02-28] MEDS: DOXYCYCLINE 100MG TABLET PO SCH (09:06)
[2017-02-28] MEDS: THIAMINE 100MG TABLET PO SCH (09:06)
[2017-02-28] MEDS: GABAPENTIN 400 MG CAPSULE PO SCH (09:07)
[2017-02-28] MEDS: ONDANSETRON ODT 4 MG PO PRN ×2 (09:07→15:38)
[2017-02-28] MEDS: SODIUM CHLORIDE FLUSH 10ML SYR IVF SCH (09:08)
[2017-02-28] MEDS: MUPIROCIN OINT 2%, 22GM TP SCH (11:45)
[2017-02-28] MEDS: FLUTICASONE/VILANTEROL 100-25MCG/INH INH SCH (11:45)
[2017-02-28 13:06] VITALS: BP 108/72
[2017-02-28] MEDS ORDERED: GABA-827 PO (16:59)
[2017-02-28] MEDS ORDERED: FLUT1AER INH (16:59)
[2017-02-28] MEDS ORDERED: QUET100T PO (16:59)
[2017-02-28] MEDS ORDERED: TRAM50TA2 PO (16:59)
[2017-02-28] MEDS ORDERED: TIOT18CA INH (16:59)
[2017-02-28] MEDS ORDERED: MULT1TAB60 PO (16:59)
[2017-02-28] MEDS ORDERED: ONDA4TAB13 PO (16:59)
[2017-02-28] MEDS ORDERED: THIA100T6 PO (16:59)
[2017-02-28] MEDS ORDERED: FOLI-17 PO (16:59)
[2017-02-28] MEDS ORDERED: QUET25TA PO (16:59)
[2017-02-28] MEDS ORDERED: PRED20TA PO (16:59)
[2017-02-28] MEDS ORDERED: MAGN400T26 PO (16:59)
[2017-02-28] MEDS ORDERED: IPRA3AMP NPPB (16:59)
[2017-02-28] MEDS ORDERED: ZOLP5TAB PO (17:02)
[2017-02-28] MEDS ORDERED: HCTZ MC SCH (17:30)
[2017-02-28] MEDS ORDERED: HYDROCHLOROTHIAZIDE 12.5 MG CAPSULE PO SCH (17:30)
== END 2017-02-28 19:16 | disposition home or self-care (01) | DRG 918 ==
LOC: ED 15:40 → EDIP 17:07 → 4WST 21:09 → 4EST 02-19 10:10 → 4WST 02-25 17:50
PROVIDERS: ADMIT Internal Medicine; ATTEND Internal Medicine
DX: T42.6X2A Poisoning by other antiepileptic and sedative-hypnotic drugs, intentional self-harm, initial encounter (principal); J90 Pleural effusion, not elsewhere classified; E87.2 Acidosis; E87.1 Hypo-osmolality and hyponatremia; J44.1 Chronic obstructive pulmonary disease with (acute) exacerbation; F10.239 Alcohol dependence with withdrawal, unspecified; E87.6 Hypokalemia; F17.200 Nicotine dependence, unspecified, uncomplicated; F31.9 Bipolar disorder, unspecified; F41.9 Anxiety disorder, unspecified; I10 Essential (primary) hypertension; K21.9 Gastro-esophageal reflux disease without esophagitis; K29.70 Gastritis, unspecified, without bleeding; M19.90 Unspecified osteoarthritis, unspecified site; M81.0 Age-related osteoporosis without current pathological fracture; Z81.1 Family history of alcohol abuse and dependence; Z81.8 Family history of other mental and behavioral disorders
CPT/HCPCS: 36415; 71010; 71275; 80048; 80053; 80307; 80329; 81003; 82962; 83690; 83735; 84100; 84295; 84443; 85025; 87046; 87081; 87324; 87899; 93005; 93306; 94640; 96361; 96372; 96374; 96375; J1650; J1885; J1940; J2405; J3411; J3475; J3480; J7042; J7613; J7620; Q0162; G0479; G0480; J2060; J2920; J2930; J7030; J7512

== ENCOUNTER 2017-07-24 13:00 | Inpatient (IN) | payer MEDICAID ==
[~2017-07-24] VITALS: Ht 175.3 cm; Wt 94.2 kg
[~2017-07-24 13:00] MED LIST changes: +FLUT1AER INH; +FOLI-17 PO; +GABA-827 PO; +IPRA3AMP NPPB; +MAGN400T26 PO; +MULT1TAB60 PO; +ONDA4TAB13 PO; +PRED20TA PO; +QUET100T PO; +QUET25TA PO; +THIA100T6 PO; +TIOT18CA INH; +ZOLP5TAB PO
[2017-07-24] MEDS ORDERED: SODIUM CHLORIDE 0.9% 1,000ML IVBOLUS ONE ×2 (14:00→19:00)
[2017-07-24] MEDS ORDERED: THIAMINE 100MG TABLET PO ONE (14:00)
[2017-07-24] MEDS ORDERED: FAMOTIDINE 20 MG/2 ML IVP ONE (14:00)
[2017-07-24] MEDS ORDERED: LORazepam 2 MG/ML, 1ML IVPush ONE (14:00)
[2017-07-24] MEDS ORDERED: ONDANSETRON 2MG/ML, 2ML IVPush ONE (14:00)
[2017-07-24 14:12] LABS: BASOPHILS # (AUTO) 0.04 x10^3/uL (0-0.1); BASOPHILS % (AUTO) 0 % (0-1); EOSINOPHILS # (AUTO) 0.04 x10^3/uL (0-0.4); EOSINOPHILS % (AUTO) 0 % (1-7); LYMPHOCYTES # (AUTO) 4.36 x10^3/uL (1-3.4); LYMPHOCYTES % (AUTO) 33 % (22-44); MD NO; MEAN CORPUSCULAR HEMOGLOBIN 31.4 pg (27.0-34.8); MEAN CORPUSCULAR HGB CONC 33.3 g/dL (32.4-35.8); MEAN CORPUSCULAR VOLUME 94.3 fL (80-100); MEAN PLATELET VOLUME 7.2 fL (7.4-10.4); MONOCYTES # (AUTO) 0.64 x10^3/uL (0.2-0.8); MONOCYTES % (AUTO) 5 % (2-9); NEUTROPHILS # (AUTO) 8.17 x10^3/uL (1.8-6.8); NEUTROPHILS % (AUTO) 62 % (42-75); PLATELET COUNT 348 x10^3/uL (130-400); RED BLOOD COUNT 6.14 x10^6/uL (3.82-5.3); RED CELL DISTRIBUTION WIDTH 15.4 % (9.6-15.2)
[2017-07-24 14:23] LABS: ALBUMIN 4.5 g/dL (3.4-5.0); ANION GAP 25 mmol/L (5-15); CALCIUM 10.2 mg/dL (8.5-10.1); CHLORIDE 100 mmol/L (98-107)
[2017-07-24 14:26] LABS: ALANINE AMINOTRANSFERASE 19 U/L (12-78); ALKALINE PHOSPHATASE 166 U/L (45-117); BILIRUBIN,TOTAL 0.5 mg/dL (0.2-1.0); CREATININE 1.34 mg/dL (0.55-1.02); TOTAL PROTEIN 9.3 g/dL (6.4-8.2)
[2017-07-24] MEDS ORDERED: FAMOTIDINE 20 MG/2 ML ONE (14:36)
[2017-07-24] MEDS ORDERED: LORazepam 2 MG/ML, 1ML ONE ×2 (14:36→17:12)
[2017-07-24] MEDS ORDERED: ONDANSETRON 2MG/ML, 2ML ONE (14:36)
[2017-07-24 16:10] LABS: SALICYLATE LEVEL 3.4 mg/dL (2.8-20.0)
[2017-07-24 16:12] LABS: ACETAMINOPHEN < 2 mcg/mL (10-30)
[2017-07-24 16:12] LABS: MICROSCOPIC INDICATED
[2017-07-24 16:18] LABS: AMPHETAMINE SCREEN, URINE Negative (Negative); BARBITURATE SCREEN, URINE Negative (Negative); BENZODIAZEPINE SCREEN, URINE Negative (Negative); CANNABINOID SCREEN, URINE Negative (Negative); COCAINE SCREEN, URINE Negative (Negative); METHADONE SCREEN, URINE Negative (Negative); OPIATE SCREEN, URINE Negative (Negative)
[2017-07-24 16:23] LABS: CULTURE INDICATED? YES
[2017-07-24] MEDS ORDERED: METOCLOPRAMIDE 5 MG/ML, 2ML ONE (16:25)
[2017-07-24] MEDS ORDERED: METOCLOPRAMIDE 5 MG/ML, 2ML IVPush ONE (16:30)
[2017-07-24] MEDS: LORazepam 2 MG/ML, 1ML IVPush PRN ×2 (17:27→19:17)
[2017-07-24] MEDS ORDERED: OMNIPAQUE 350 MG/ML, 100ML BOTTLE ONE (18:19)
[2017-07-24] MEDS ORDERED: SODIUM CHLORIDE 0.9% 1,000 ML IV ONE (19:00)
[2017-07-24] MEDS: SODIUM CHLORIDE 0.9% 1,000 ML IV SCH (19:57)
[2017-07-24] MEDS ORDERED: MELOXICAM 15 MG TABLET PO SCH ×2 (20:00→21:00)
[2017-07-24] MEDS ORDERED: DOCUSATE 100 MG CAPSULE PO PRN (20:00)
[2017-07-24] MEDS ORDERED: TEMPLATE NON-FORMULARY MED. (Cyclobenzaprine Hcl** 5 MG) PO PRN (20:00)
[2017-07-24] MEDS ORDERED: ALBUTEROL SULFATE 2.5 MG/3 ML NPPB PRN (20:30)
[2017-07-24] MEDS ORDERED: CYCLOBENZAPRINE MC SCH (20:30)
[2017-07-24] MEDS ORDERED: MELOXICAM MC SCH (20:30)
[2017-07-24 20:33] LABS: TROPONIN I < 0.015 ng/mL (0.000-0.045)
[2017-07-24 20:34] VITALS: BP 126/88
[2017-07-24] MEDS ORDERED: CYCLOBENZAPRINE 10 MG TABLET PO PRN (21:30)
[2017-07-24] MEDS: QUETIAPINE 100MG TABLET PO SCH (22:51)
[2017-07-24] MEDS: GABAPENTIN 400 MG CAPSULE PO SCH (22:51)
[2017-07-24] MEDS: ONDANSETRON 2MG/ML, 2ML IVPush PRN (22:52)
[2017-07-24] MEDS: ZOLPIDEM 5MG TABLET PO PRN (22:52)
[2017-07-25 02:00] VITALS: BP 118/82
[2017-07-25] MEDS: LORazepam 2 MG/ML, 1ML IVPush PRN ×6 (02:26→21:46)
[2017-07-25 02:39] LABS: ANION GAP 12 mmol/L (5-15); CALCIUM 7.9 mg/dL (8.5-10.1); CHLORIDE 101 mmol/L (98-107); CREATININE 0.86 mg/dL (0.55-1.02)
[2017-07-25 02:47] LABS: BASOPHILS # (AUTO) 0.01 x10^3/uL (0-0.1); BASOPHILS % (AUTO) 0 % (0-1); EOSINOPHILS # (AUTO) 0.03 x10^3/uL (0-0.4); EOSINOPHILS % (AUTO) 0 % (1-7); LYMPHOCYTES # (AUTO) 1.98 x10^3/uL (1-3.4); LYMPHOCYTES % (AUTO) 32 % (22-44); MD NO; MEAN CORPUSCULAR HEMOGLOBIN 31.6 pg (27.0-34.8); MEAN CORPUSCULAR HGB CONC 33.6 g/dL (32.4-35.8); MEAN CORPUSCULAR VOLUME 94.1 fL (80-100); MEAN PLATELET VOLUME 7.4 fL (7.4-10.4); MONOCYTES # (AUTO) 0.75 x10^3/uL (0.2-0.8); MONOCYTES % (AUTO) 12 % (2-9); NEUTROPHILS # (AUTO) 3.52 x10^3/uL (1.8-6.8); NEUTROPHILS % (AUTO) 56 % (42-75); PLATELET COUNT 219 x10^3/uL (130-400); RED BLOOD COUNT 4.42 x10^6/uL (3.82-5.3); RED CELL DISTRIBUTION WIDTH 15.6 % (9.6-15.2)
[2017-07-25 02:48] LABS: TROPONIN I < 0.015 ng/mL (0.000-0.045)
[2017-07-25] MEDS: ONDANSETRON 2MG/ML, 2ML IVPush PRN ×3 (04:58→18:26)
[2017-07-25] MEDS: SODIUM CHLORIDE 0.9% 1,000 ML IV SCH ×2 (05:44→15:21)
[2017-07-25 06:35] VITALS: BP 126/84
[2017-07-25] MEDS: THIAMINE 100MG TABLET PO SCH (08:31)
[2017-07-25] MEDS: FOLIC ACID 1 MG TABLET PO SCH (08:31)
[2017-07-25] MEDS: GABAPENTIN 400 MG CAPSULE PO SCH ×3 (08:31→20:31)
[2017-07-25] MEDS: MULTIVITAMIN 1 TABLET PO SCH (08:31)
[2017-07-25] MEDS: PANTOPRAZOLE 40 MG IV IVPush SCH (08:31)
[2017-07-25] MEDS ORDERED: BUDE10.2 INH (11:18)
[2017-07-25] MEDS ORDERED: ALBU18HF INH (11:18)
[2017-07-25] MEDS ORDERED: LORazepam 1MG TABLET PO PRN ×2 (11:30)
[2017-07-25] MEDS ORDERED: MAALOX/HYOSCYAMINE/LIDOCAINE 45 ML BTL PO PRN (11:30)
[2017-07-25 12:03] VITALS: BP 111/63
[2017-07-25] MEDS ORDERED: ALBUTEROL SULFATE 2.5 MG/3 ML HHN SCH (16:00)
[2017-07-25 18:56] VITALS: BP 152/62
[2017-07-25 20:03] VITALS: BP 127/82
[2017-07-25] MEDS: ZOLPIDEM 5MG TABLET PO PRN (20:32)
[2017-07-25] MEDS: QUETIAPINE 100MG TABLET PO SCH (20:32)
[2017-07-25] MEDS ORDERED: TEMPLATE NON-FORMULARY MED. (Budesonide/Formoterol Fumarate (Symbicort 160-4.5 Mcg Inhaler INH SCH (21:00)
[2017-07-26] MEDS: LORazepam 2 MG/ML, 1ML IVPush PRN ×3 (00:54→08:31)
[2017-07-26] MEDS: SODIUM CHLORIDE 0.9% 1,000 ML IV SCH (00:54)
[2017-07-26 01:35] VITALS: BP 100/66
[2017-07-26] MEDS: ONDANSETRON 2MG/ML, 2ML IVPush PRN ×4 (02:16→22:13)
[2017-07-26 05:12] LABS: CHLORIDE 112 mmol/L (98-107)
[2017-07-26 05:26] LABS: ANION GAP 7 mmol/L (5-15); CALCIUM 7.8 mg/dL (8.5-10.1)
[2017-07-26 07:50] VITALS: BP 106/72
[2017-07-26] MEDS: PANTOPRAZOLE 40 MG IV IVPush SCH (08:10)
[2017-07-26] MEDS: THIAMINE 100MG TABLET PO SCH (08:10)
[2017-07-26] MEDS: MULTIVITAMIN 1 TABLET PO SCH (08:10)
[2017-07-26] MEDS: GABAPENTIN 400 MG CAPSULE PO SCH ×3 (08:10→20:17)
[2017-07-26] MEDS: FOLIC ACID 1 MG TABLET PO SCH (08:10)
[2017-07-26] MEDS: FLUTICASONE/VILANTEROL 200-25MCG/INH INH SCH (09:37)
[2017-07-26] MEDS ORDERED: LORazepam 2 MG/ML, 1ML IVPush PRN (11:00)
[2017-07-26] MEDS: ENOXAPARIN 40 MG/0.4 ML SQ SCH (11:12)
[2017-07-26] MEDS: LORazepam 0.5MG TABLET PO PRN ×3 (11:20→20:17)
[2017-07-26 14:34] VITALS: BP 110/78
[2017-07-26] MEDS ORDERED: ALBUTEROL SULFATE 2.5 MG/3 ML HHN PRN (16:00)
[2017-07-26 19:13] VITALS: BP 156/87
[2017-07-26] MEDS: QUETIAPINE 100MG TABLET PO SCH (20:17)
[2017-07-26] MEDS ORDERED: ZOLPIDEM 10MG TABLET PO ONE (21:30)
[2017-07-27 01:17] VITALS: BP 150/85
[2017-07-27] MEDS: LORazepam 0.5MG TABLET PO PRN ×2 (01:27→06:37)
[2017-07-27] MEDS ORDERED: VENL37.52 PO (04:19)
[2017-07-27] MEDS: ONDANSETRON 2MG/ML, 2ML IVPush PRN (04:27)
[2017-07-27 05:54] LABS: CLOSTRIDIUM DIFFICILE ANTIGEN NEGATIVE; CLOSTRIDIUM DIFFICILE TOXIN NEGATIVE (Negative)
[2017-07-27 08:40] VITALS: BP 155/91
[2017-07-27] MEDS: MULTIVITAMIN 1 TABLET PO SCH (09:42)
[2017-07-27] MEDS: THIAMINE 100MG TABLET PO SCH (09:42)
[2017-07-27] MEDS: GABAPENTIN 400 MG CAPSULE PO SCH (09:42)
[2017-07-27] MEDS: FOLIC ACID 1 MG TABLET PO SCH (09:42)
[2017-07-27] MEDS: PANTOPRAZOLE 40 MG IV IVPush SCH (09:43)
[2017-07-27] MEDS: FLUTICASONE/VILANTEROL 200-25MCG/INH INH SCH (09:43)
[2017-07-27] MEDS: ENOXAPARIN 40 MG/0.4 ML SQ SCH (09:47)
== END 2017-07-27 13:07 | disposition home or self-care (01) | DRG 896 ==
LOC: ED 17:13 → EDIP 19:05 → 4WST 20:15
PROVIDERS: ADMIT Internal Medicine; ATTEND Internal Medicine
DX: F10.239 Alcohol dependence with withdrawal, unspecified (principal); N17.0 Acute kidney failure with tubular necrosis; E87.1 Hypo-osmolality and hyponatremia; F33.9 Major depressive disorder, recurrent, unspecified; R45.851 Suicidal ideations; E16.2 Hypoglycemia, unspecified; E86.0 Dehydration; F17.210 Nicotine dependence, cigarettes, uncomplicated; G89.29 Other chronic pain; I10 Essential (primary) hypertension; J44.9 Chronic obstructive pulmonary disease, unspecified; K21.9 Gastro-esophageal reflux disease without esophagitis; K29.20 Alcoholic gastritis without bleeding; M19.90 Unspecified osteoarthritis, unspecified site; Z79.51 Long term (current) use of inhaled steroids; Z79.899 Other long term (current) drug therapy; Z90.710 Acquired absence of both cervix and uterus; Z91.5 Personal history of self-harm; Z90.49 Acquired absence of other specified parts of digestive tract
CPT/HCPCS: 36415; 74177; 80048; 80053; 80307; 80329; 81001; 83735; 84484; 85025; 87086; 87324; 93005; 94640; 96361; 96374; 96375; 96376; J1650; J2405; J7613; Q9967; C9113; G0480; J2060; J2765; J7030; S0028

== ENCOUNTER 2019-07-23 00:50 | Emergency (ER) | payer MEDICAID ==
[~2019-07-23] VITALS: Ht 175.3 cm; Wt 80.6 kg
[~2019-07-23 00:50] MED LIST changes: -ALEN70TA5 PO; +ALEN70TA6 PO; -GABA600T2 PO; +GABA600T7 PO; -HYDR12.58 PO; +HYDROCHLOROTH12.5 MG PO; -IPRA3AMP NPPB; +IPRA3AMP30 NPPB; -QUET25TA PO; +QUET25TA7 PO; -THIA100T6 PO; +THIA100T67 PO; +TRAZ-175 PO; -TRAZ100T15 PO; -TRAZ50TA18 PO; +TRAZ50TA66 PO; +VENL37.52 PO
[2019-07-23] MEDS ORDERED: SODIUM CHLORIDE 0.9% 1,000ML IVBOLUS ONE (01:00)
[2019-07-23] MEDS ORDERED: CLON0.5T PO (01:20)
[2019-07-23 01:32] LABS: BASOPHILS # (AUTO) 0.08 x10^3/uL (0-0.1); BASOPHILS % (AUTO) 1 % (0-1); EOSINOPHILS % (AUTO) 1 % (1-7); LYMPHOCYTES # (AUTO) 1.39 x10^3/uL (1-3.4); LYMPHOCYTES % (AUTO) 14 % (22-44); MD NO; MEAN CORPUSCULAR HEMOGLOBIN 32.8 pg (27.0-34.8); MEAN CORPUSCULAR VOLUME 96.3 fL (80-100); MEAN PLATELET VOLUME 7.5 fL (7.4-10.4); MONOCYTES # (AUTO) 0.98 x10^3/uL (0.2-0.8); MONOCYTES % (AUTO) 10 % (2-9); NEUTROPHILS # (AUTO) 7.59 x10^3/uL (1.8-6.8); NEUTROPHILS % (AUTO) 75 % (42-75); PLATELET COUNT 261 x10^3/uL (130-400); RED BLOOD COUNT 4.76 x10^6/uL (3.82-5.3)
[2019-07-23 01:38] LABS: ALANINE AMINOTRANSFERASE 30 U/L (12-78); ALBUMIN 3.7 g/dL (3.4-5.0); ANION GAP 16 mmol/L (5-15); CALCIUM 8.7 mg/dL (8.5-10.1); CHLORIDE 100 mmol/L (98-107); CREATININE 0.79 mg/dL (0.55-1.02)
[2019-07-23 01:42] LABS: ALKALINE PHOSPHATASE 154 U/L (45-117); TOTAL PROTEIN 7.8 g/dL (6.4-8.2); TROPONIN I < 0.015 ng/mL (0.000-0.045)
[2019-07-23 02:29] VITALS: BP 125/86
[2019-07-23] MEDS ORDERED: LORazepam 2 MG/ML, 1ML ONE (02:47)
[2019-07-23] MEDS ORDERED: LORazepam 2 MG/ML, 1ML IVPush ONE (03:00)
== END 2019-07-23 03:23 | disposition home or self-care (01) ==
LOC: ED 02:30
DX: R11.2 Nausea with vomiting, unspecified (principal); Z00.00 Encounter for general adult medical examination without abnormal findings; F10.239 Alcohol dependence with withdrawal, unspecified; I10 Essential (primary) hypertension; J45.909 Unspecified asthma, uncomplicated; M81.0 Age-related osteoporosis without current pathological fracture; F17.200 Nicotine dependence, unspecified, uncomplicated; Y90.9 Presence of alcohol in blood, level not specified
CPT/HCPCS: 36415; 71045; 80053; 80307; 83690; 84484; 85025; 93005; 96361; 96374; 99284; J2060; J7030

== ENCOUNTER 2019-09-21 18:41 | Emergency (ER) | payer MEDICAID ==
[~2019-09-21] VITALS: Ht 175.3 cm; Wt 77.3 kg
[~2019-09-21 18:41] MED LIST changes: +CLON0.5T PO
--- NOTE | 2019-09-21 18:45 | NUR ---
PT BIB [facility] FROM HOME. PT STATES SHE STARTED HAVING ABD PAIN EARLY THIS MORNING AFTER BINGE DRINKING. NEIGHBOR CALLED EMS. PT INTOXICATED, POOR HISTORIAN. MEDICATED WITH ZOFRAN 4MG ODT BY EMS, NO VOMITING NOTED BY EMS. VS PER EMS: 135/75, HR 104, 97% ON RA, BS 64. PT ARRIVES TO ED A&OX4, FORGETFUL AT TIMES.
[2019-09-21] MEDS ORDERED: SODIUM CHLORIDE FLUSH 10ML SYR IVF ONE (19:00)
--- NOTE | 2019-09-21 19:01 | NUR ---
REPORTED TO DANN BARRIGA.
--- NOTE | 2019-09-21 19:16 | NUR ---
Report received from Lizett BARRIGA. PIV placed and labs drawn. Pt on pulse ox/HR monitor. Lights dimmed for comfort.
[2019-09-21 19:17] LABS: BASOPHILS # (AUTO) 0.03 x10^3/uL (0-0.1); BASOPHILS % (AUTO) 1 % (0-1); EOSINOPHILS # (AUTO) 0.02 x10^3/uL (0-0.4); EOSINOPHILS % (AUTO) 0 % (1-7); LYMPHOCYTES # (AUTO) 1.57 x10^3/uL (1-3.4); LYMPHOCYTES % (AUTO) 28 % (22-44); MD NO; MEAN CORPUSCULAR HEMOGLOBIN 32.5 pg (27.0-34.8); MEAN CORPUSCULAR HGB CONC 33.6 g/dL (32.4-35.8); MEAN CORPUSCULAR VOLUME 96.7 fL (80-100); MEAN PLATELET VOLUME 7.2 fL (7.4-10.4); MONOCYTES # (AUTO) 0.17 x10^3/uL (0.2-0.8); MONOCYTES % (AUTO) 3 % (2-9); NEUTROPHILS # (AUTO) 3.94 x10^3/uL (1.8-6.8); NEUTROPHILS % (AUTO) 69 % (42-75); PLATELET COUNT 243 x10^3/uL (130-400); RED BLOOD COUNT 5.16 x10^6/uL (3.82-5.3); RED CELL DISTRIBUTION WIDTH 13.8 % (9.6-15.2)
[2019-09-21 19:36] LABS: ALANINE AMINOTRANSFERASE 26 U/L (12-78); ALBUMIN 4.1 g/dL (3.4-5.0); ANION GAP 25 mmol/L (5-15); CALCIUM 9.1 mg/dL (8.5-10.1); CHLORIDE 102 mmol/L (98-107); CREATININE 0.89 mg/dL (0.55-1.02)
[2019-09-21 19:38] LABS: ALKALINE PHOSPHATASE 161 U/L (45-117); BILIRUBIN,TOTAL 0.6 mg/dL (0.2-1.0); TOTAL PROTEIN 8.4 g/dL (6.4-8.2)
[2019-09-21 19:47] VITALS: BP 116/88
--- NOTE | 2019-09-21 19:48 | NUR ---
Pt noted to be 87% on RA while sleeping. Pt easily awakened. Pt placed on 2L NC with sats at 92%.
--- NOTE | 2019-09-21 20:09 | NUR ---
Pt found to have taken off oxygen, BP cuff and pulse ox probe. Items placed back on pt and pt reminded to keep them on.
--- NOTE | 2019-09-21 20:29 | NUR ---
Pt once again removed all monitoring items and oxygen. Pt given water per ERP. Pt educated multiple times to take small sips.
--- NOTE | 2019-09-21 20:40 | NUR ---
Pt tolerated a couple sips of water without emesis. MD updated and at bedside.
[2019-09-21] MEDS ORDERED: ONDANSETRON 2MG/ML, 2ML ONE (20:54)
[2019-09-21] MEDS ORDERED: ONDANSETRON 2MG/ML, 2ML IVPush ONE (21:00)
--- NOTE | 2019-09-21 21:05 | NUR ---
[place] given. Pt stating she does not want to be d/c'd. Pt educated on home care and expected care in an ER. Pt demanding to see MD before PIV removed. MD at bedside and re-educated pt on plan for d/c. PIV removed. Pt given d/c papers. Addendum: 09/21/19 at 2107 by MRICH Pt with sats >92% on RA
--- NOTE | 2019-09-21 21:09 | NUR ---
Pt fully dressed and laying on gurney. Pt given taxi voucher and educated that she has been discharged and it is time to leave. Pt refusing to leave. Security called for escort.
--- NOTE | 2019-09-21 21:15 | NUR ---
Pt escorted out of ER by security.
== END 2019-09-21 21:16 ==
LOC: ED 19:36
DX: K29.20 Alcoholic gastritis without bleeding (principal); R11.2 Nausea with vomiting, unspecified; I10 Essential (primary) hypertension; F17.200 Nicotine dependence, unspecified, uncomplicated; Y90.0 Blood alcohol level of less than 20 mg/100 ml
CPT/HCPCS: 36415; 80053; 83690; 85025; 96374; 99283; J2405

== ENCOUNTER 2019-09-22 17:23 | Inpatient (IN) | payer MEDICAID ==
[~2019-09-22] VITALS: Ht 175.3 cm; Wt 90.4 kg
--- NOTE | 2019-09-22 17:38 | NUR ---
THIS IS A 54 YO F BIB EMS W/ C/O OF BLACK EMESIS THAT STARTED TODAY. PT STATES THAT SHE WAS HERE LAST NIGHT FOR ETOH AND THAT HER EMESIS HAS BEEN CLEAR UP UNTIL TODAY. REPORTS ABD PAIN IN ALL QUADRANTS, TENDER TO TOUCH. PT REPORTS DRINKING 1 PT ALCOHOL A DAY. LAST DRINK WAS YESTERDAY. REPORTS CHRONIC COUGH WHICH SHE ATTRIBUTES TO ASTHMA. PT CONNECTED TO MONITORING. TACHYCARDIC. OTHER VS WDL.
[2019-09-22] MEDS ORDERED: LORazepam 2 MG/ML, 1ML ONE ×2 (17:43→18:35)
[2019-09-22] MEDS ORDERED: PLEASE ENTER WEIGHT MC SCH ×2 (18:00)
[2019-09-22] MEDS ORDERED: SODIUM CHLORIDE 0.9% 1,000ML IVBOLUS ONE ×2 (18:00→18:30)
[2019-09-22] MEDS ORDERED: LORazepam 2 MG/ML, 1ML IVPush ONE ×2 (18:00→19:00)
[2019-09-22] MEDS ORDERED: SODIUM CHLORIDE FLUSH 10ML SYR IVF ONE (18:00)
[2019-09-22] MEDS ORDERED: PANTOPRAZOLE 40 MG IV IVPush ONE (18:00)
--- NOTE | 2019-09-22 18:01 | NUR ---
PT DESAT TO 88% AFTER ATIVAN. PLACED ON 2L O2 NC. NOW 93%.
[2019-09-22 18:10] LABS: ALANINE AMINOTRANSFERASE 33 U/L (12-78); ALBUMIN 4.5 g/dL (3.4-5.0); ANION GAP 33 mmol/L (5-15); CALCIUM 8.8 mg/dL (8.5-10.1); CHLORIDE 86 mmol/L (98-107); CREATININE 2.31 mg/dL (0.55-1.02)
[2019-09-22 18:12] LABS: ALKALINE PHOSPHATASE 169 U/L (45-117); BILIRUBIN,TOTAL 0.8 mg/dL (0.2-1.0); TOTAL PROTEIN 9.2 g/dL (6.4-8.2)
[2019-09-22 18:13] LABS: MEAN CORPUSCULAR HEMOGLOBIN 32.3 pg (27.0-34.8); MEAN CORPUSCULAR HGB CONC 33.5 g/dL (32.4-35.8); MEAN CORPUSCULAR VOLUME 96.3 fL (80-100); MEAN PLATELET VOLUME 7.5 fL (7.4-10.4); PLATELET COUNT 259 x10^3/uL (130-400); RED BLOOD COUNT 5.39 x10^6/uL (3.82-5.3); RED CELL DISTRIBUTION WIDTH 13.4 % (9.6-15.2)
--- NOTE | 2019-09-22 18:14 | NUR ---
ALL TEST RESULTED. PT IS UP FOR RECHECK AT THIS TIME.
--- NOTE | 2019-09-22 18:41 | NUR ---
ROSIO BARRIGA IN ROOM TO START US IV.
[2019-09-22 18:42] LABS: BASOPHILS % (AUTO) 0 % (0-1); EOSINOPHILS % (AUTO) 0 % (1-7); LYMPHOCYTES # (AUTO) 1.43 x10^3/uL (1-3.4); LYMPHOCYTES % (AUTO) 16 % (22-44); MD SCAN; MONOCYTES # (AUTO) 0.33 x10^3/uL (0.2-0.8); MONOCYTES % (AUTO) 4 % (2-9); NEUTROPHILS # (AUTO) 7.12 x10^3/uL (1.8-6.8); NEUTROPHILS % (AUTO) 80 % (42-75)
--- NOTE | 2019-09-22 18:45 | NUR ---
MED LINDA FROM PHARMACY.
--- NOTE | 2019-09-22 18:49 | NUR ---
US IN ROOM.
--- NOTE | 2019-09-22 18:53 | NUR ---
ADMITTING PROVIDER IN ROOM.
[2019-09-22] MEDS ORDERED: MAGNESIUM SULFATE 1 GM, THIAMINE 100 MG, FOLIC ACID 1 MG, MVI ADULT 10 ML in SODIUM CHL... IV ONE (19:00)
--- NOTE | 2019-09-22 19:16 | NUR ---
REPORT GIVEN TO MAO BARRIGA.
--- NOTE | 2019-09-22 19:20 | NUR ---
ASSUMED CARE OF PT, MEDICATED PER MAR. VSS. PLACED CALL LIGHT WITHIN REACH.
--- NOTE | 2019-09-22 19:28 | NUR ---
ASSISTED PT TO [facility].
[2019-09-22] MEDS ORDERED: SODIUM CHLORIDE 0.9% IV SCH (19:30)
[2019-09-22] MEDS ORDERED: POLYETHYLENE GLYCOL 17 GM PACKET PO PRN (19:30)
[2019-09-22] MEDS: NICOTINE 14MG/24 HR PATCH.TD24 TD SCH ×2 (19:30→20:59)
[2019-09-22] MEDS ORDERED: LORazepam 2 MG/ML, 1ML IVPush PRN (19:30)
[2019-09-22] MEDS ORDERED: SODIUM BICARBONATE IV SCH (19:30)
[2019-09-22] MEDS ORDERED: BISACODYL 10 MG SUPP PR PRN (19:30)
[2019-09-22] MEDS ORDERED: ONDANSETRON 2MG/ML, 2ML ONE (19:31)
[2019-09-22] MEDS: ONDANSETRON 2MG/ML, 2ML IVPush PRN (19:33)
--- NOTE | 2019-09-22 19:48 | NUR ---
REPORT GIVEN TO NGUYEN BARRIGA.
[2019-09-22 20:33] VITALS: BP 128/75
[2019-09-22] MEDS: THIAMINE 100MG TABLET PO SCH (20:59)
[2019-09-22] MEDS: QUETIAPINE 100MG TABLET PO SCH (20:59)
[2019-09-22] MEDS: GABAPENTIN 400 MG CAPSULE PO SCH (20:59)
[2019-09-22] MEDS ORDERED: TEMPLATE NON-FORMULARY MED. (Budesonide/Formoterol Fumarate (Symbicort 160-4.5 Mcg Inhaler INH SCH (21:00)
[2019-09-22] MEDS ORDERED: TEMPLATE NON-FORMULARY MED. (Albuterol Sulfate (Ventolin Hfa) 2 PUFF) INH SCH (21:00)
[2019-09-22] MEDS ORDERED: ALBUTEROL SULFATE 2.5 MG/3 ML HHN SCH (21:00)
[2019-09-22] MEDS: BUDESONIDE 0.5 MG/2 ML INHA HHN SCH (21:00)
[2019-09-22] MEDS: SODIUM BICARBONATE 8.4% 100 MEQ in SODIUM CHLORIDE 0.45% 1,000 ML IV SCH (22:11)
[2019-09-23 01:40] VITALS: BP 133/81
[2019-09-23] MEDS ORDERED: MORPHINE SULFATE 4 MG/ML, 1ML IVPush ONE (03:00)
[2019-09-23] MEDS: ONDANSETRON 2MG/ML, 2ML IVPush PRN (03:34)
[2019-09-23] MEDS: CHLORDIAZEPOXIDE 25 MG CAPSULE PO PRN (05:17)
[2019-09-23 05:35] LABS: BASOPHILS # (AUTO) 0.01 x10^3/uL (0-0.1); BASOPHILS % (AUTO) 0 % (0-1); EOSINOPHILS # (AUTO) 0.02 x10^3/uL (0-0.4); EOSINOPHILS % (AUTO) 0 % (1-7); LYMPHOCYTES % (AUTO) 13 % (22-44); MD NO; MEAN CORPUSCULAR HEMOGLOBIN 32.2 pg (27.0-34.8); MEAN CORPUSCULAR HGB CONC 33.8 g/dL (32.4-35.8); MEAN CORPUSCULAR VOLUME 95.3 fL (80-100); MEAN PLATELET VOLUME 7.1 fL (7.4-10.4); MONOCYTES % (AUTO) 7 % (2-9); NEUTROPHILS # (AUTO) 6.18 x10^3/uL (1.8-6.8); NEUTROPHILS % (AUTO) 80 % (42-75); PLATELET COUNT 155 x10^3/uL (130-400); RED BLOOD COUNT 4.27 x10^6/uL (3.82-5.3); RED CELL DISTRIBUTION WIDTH 13.3 % (9.6-15.2)
[2019-09-23 05:37] LABS: CALCIUM 7.3 mg/dL (8.5-10.1); CHLORIDE 99 mmol/L (98-107)
[2019-09-23 05:42] LABS: ALANINE AMINOTRANSFERASE 27 U/L (12-78); ALBUMIN 3.3 g/dL (3.4-5.0); ALKALINE PHOSPHATASE 124 U/L (45-117); ANION GAP 24 mmol/L (5-15); BILIRUBIN,TOTAL 1.2 mg/dL (0.2-1.0); CREATININE 1.49 mg/dL (0.55-1.02)
[2019-09-23] MEDS ORDERED: ALBUTEROL SULFATE 2.5 MG/3 ML ONE (06:42)
[2019-09-23 06:50] VITALS: BP 108/60
[2019-09-23] MEDS: BUDESONIDE 0.5 MG/2 ML INHA HHN SCH ×2 (07:06→20:15)
[2019-09-23] MEDS: ALBUTEROL SULFATE 2.5 MG/3 ML HHN SCH ×3 (07:06→20:15)
[2019-09-23 07:33] LABS: MICROSCOPIC NOT IND
[2019-09-23 07:36] LABS: CULTURE INDICATED? NO
[2019-09-23 07:44] LABS: POTASSIUM,URINE RANDOM 28 mmol/L; SODIUM,URINE RANDOM 81 mmol/L
[2019-09-23 08:01] LABS: CHLORIDE,URINE RANDOM < 10 mmol/L
[2019-09-23] MEDS: VENLAFAXINE XR 37.5MG CAP.ER.24H PO SCH (08:28)
[2019-09-23] MEDS: FOLIC ACID 1 MG TABLET PO SCH (08:28)
[2019-09-23] MEDS: THIAMINE 100MG TABLET PO SCH ×2 (08:29→19:41)
[2019-09-23] MEDS: GABAPENTIN 400 MG CAPSULE PO SCH ×3 (08:29→19:40)
[2019-09-23] MEDS: SENNA/DOCUSATE TABLET PO SCH (08:29)
[2019-09-23] MEDS: MULTIVITAMINS/MINERALS TABLET PO SCH (08:29)
[2019-09-23] MEDS ORDERED: LORazepam 1MG TABLET PO PRN ×2 (11:30)
[2019-09-23] MEDS ORDERED: LORazepam 2 MG/ML, 1ML IV PRN ×2 (11:30)
[2019-09-23] MEDS: LORazepam 0.5MG TABLET PO PRN ×2 (12:30→19:41)
[2019-09-23] MEDS: LIDODERM REMOVE PATCH NOTE XX SCH (13:00)
[2019-09-23] MEDS ORDERED: LIDODERM REMOVE PATCH NOTE XX SCH (13:00)
[2019-09-23 13:17] VITALS: BP 119/78
[2019-09-23] MEDS: LORazepam 1MG TABLET PO PRN (15:15)
[2019-09-23 19:26] VITALS: BP 131/67
[2019-09-23] MEDS: NICOTINE 14MG/24 HR PATCH.TD24 TD SCH (19:30)
[2019-09-23] MEDS: QUETIAPINE 100MG TABLET PO SCH (19:41)
[2019-09-23] MEDS: SODIUM BICARBONATE 8.4% 100 MEQ in SODIUM CHLORIDE 0.45% 1,000 ML IV SCH (19:45)
[2019-09-23] MEDS: LIDODERM 5% PATCH TD PRN (19:46)
[2019-09-24 01:02] VITALS: BP 124/62
[2019-09-24] MEDS: LORazepam 1MG TABLET PO PRN (02:26)
[2019-09-24] MEDS: ALBUTEROL SULFATE 2.5 MG/3 ML HHN SCH ×3 (03:20→15:05)
[2019-09-24] MEDS: SODIUM BICARBONATE 8.4% 100 MEQ in SODIUM CHLORIDE 0.45% 1,000 ML IV SCH ×2 (04:34→12:36)
[2019-09-24 06:15] LABS: ANION GAP 6 mmol/L (5-15); CALCIUM 8.1 mg/dL (8.5-10.1); CHLORIDE 100 mmol/L (98-107); CREATININE 0.73 mg/dL (0.55-1.02)
[2019-09-24 06:23] VITALS: BP 108/69
[2019-09-24 06:31] LABS: BASOPHILS # (AUTO) 0.02 x10^3/uL (0-0.1); BASOPHILS % (AUTO) 0 % (0-1); EOSINOPHILS # (AUTO) 0.04 x10^3/uL (0-0.4); EOSINOPHILS % (AUTO) 1 % (1-7); LYMPHOCYTES # (AUTO) 1.68 x10^3/uL (1-3.4); LYMPHOCYTES % (AUTO) 37 % (22-44); MD NO; MEAN CORPUSCULAR HEMOGLOBIN 32.8 pg (27.0-34.8); MEAN CORPUSCULAR HGB CONC 34.1 g/dL (32.4-35.8); MEAN CORPUSCULAR VOLUME 96.3 fL (80-100); MEAN PLATELET VOLUME 7.3 fL (7.4-10.4); MONOCYTES # (AUTO) 0.32 x10^3/uL (0.2-0.8); MONOCYTES % (AUTO) 7 % (2-9); NEUTROPHILS # (AUTO) 2.45 x10^3/uL (1.8-6.8); NEUTROPHILS % (AUTO) 54 % (42-75); PLATELET COUNT 107 x10^3/uL (130-400); RED BLOOD COUNT 3.97 x10^6/uL (3.82-5.3); RED CELL DISTRIBUTION WIDTH 13.6 % (9.6-15.2)
[2019-09-24] MEDS: LORazepam 0.5MG TABLET PO PRN ×2 (08:43→13:35)
[2019-09-24] MEDS: MULTIVITAMINS/MINERALS TABLET PO SCH (08:43)
[2019-09-24] MEDS: GABAPENTIN 400 MG CAPSULE PO SCH ×3 (08:43→20:43)
[2019-09-24] MEDS: VENLAFAXINE XR 37.5MG CAP.ER.24H PO SCH (08:43)
[2019-09-24] MEDS: SENNA/DOCUSATE TABLET PO SCH (08:43)
[2019-09-24] MEDS: THIAMINE 100MG TABLET PO SCH ×2 (08:43→20:44)
[2019-09-24] MEDS: FOLIC ACID 1 MG TABLET PO SCH (08:43)
[2019-09-24] MEDS: BUDESONIDE 0.5 MG/2 ML INHA HHN SCH ×2 (09:00→20:50)
[2019-09-24] MEDS: LIDODERM REMOVE PATCH NOTE XX SCH ×2 (09:41→20:44)
[2019-09-24] MEDS: CHLORDIAZEPOXIDE 25 MG CAPSULE PO PRN ×2 (10:52→18:18)
[2019-09-24] MEDS ORDERED: POTASSIUM CHLORIDE 20 MEQ TAB.ER.PRT PO ONE (13:00)
[2019-09-24 13:02] VITALS: BP 115/70
[2019-09-24] MEDS: NICOTINE 14MG/24 HR PATCH.TD24 TD SCH (19:30)
[2019-09-24 20:11] VITALS: BP 130/81
[2019-09-24] MEDS: QUETIAPINE 100MG TABLET PO SCH (20:44)
[2019-09-25 01:02] VITALS: BP 102/69
[2019-09-25] MEDS: ALBUTEROL SULFATE 2.5 MG/3 ML HHN SCH ×4 (03:40→19:59)
[2019-09-25] MEDS: ONDANSETRON 2MG/ML, 2ML IVPush PRN ×3 (05:04→18:08)
[2019-09-25 05:45] LABS: ANION GAP 7 mmol/L (5-15); CALCIUM 8.6 mg/dL (8.5-10.1); CHLORIDE 104 mmol/L (98-107); CREATININE 0.69 mg/dL (0.55-1.02)
[2019-09-25 06:06] LABS: MEAN CORPUSCULAR HEMOGLOBIN 32.8 pg (27.0-34.8); MEAN CORPUSCULAR HGB CONC 33.8 g/dL (32.4-35.8); MEAN CORPUSCULAR VOLUME 97.1 fL (80-100); RED BLOOD COUNT 3.92 x10^6/uL (3.82-5.3); RED CELL DISTRIBUTION WIDTH 13.6 % (9.6-15.2)
[2019-09-25 06:44] LABS: MD YES; MEAN PLATELET VOLUME 7.7 fL (7.4-10.4); PLATELET COUNT 96 x10^3/uL (130-400)
[2019-09-25 06:47] LABS: <RBC MORPHOLOGY> NORMAL; BASOS#(MANUAL) 0.03 x10^3/uL (0-0.1); BASOS% (MANUAL) 1 % (0-1); EOS#(MANUAL) 0.16 x10^3/uL (0.0-0.4); EOS% (MANUAL) 5 % (1-7); LYMPH#(MANUAL) 1.71 x10^3/uL (1-3.4); LYMPHS% (MANUAL) 55 % (22-44); MONOS#(MANUAL) 0.19 x10^3/uL (0.3-2.7); MONOS% (MANUAL) 6 % (2-9); SEG#(MANUAL) 1.02 x10^3/uL (1.8-6.8); SEGS% (MANUAL) 33 % (42-75)
[2019-09-25 06:48] LABS: <PLATELET ESTIMATE> DECREASED; <PLT MORPHOLOGY> NORMAL PLT MORPH
[2019-09-25 07:27] VITALS: BP 129/83
[2019-09-25] MEDS: SENNA/DOCUSATE TABLET PO SCH (09:00)
[2019-09-25] MEDS: VENLAFAXINE XR 37.5MG CAP.ER.24H PO SCH (09:00)
[2019-09-25] MEDS: THIAMINE 100MG TABLET PO SCH ×2 (09:00→19:59)
[2019-09-25] MEDS: GABAPENTIN 400 MG CAPSULE PO SCH ×3 (09:00→19:59)
[2019-09-25] MEDS: MULTIVITAMINS/MINERALS TABLET PO SCH (09:00)
[2019-09-25] MEDS: FOLIC ACID 1 MG TABLET PO SCH (09:00)
[2019-09-25] MEDS: BUDESONIDE 0.5 MG/2 ML INHA HHN SCH ×2 (09:40→19:59)
[2019-09-25] MEDS: LIDODERM REMOVE PATCH NOTE XX SCH ×2 (09:46→20:00)
[2019-09-25] MEDS: CHLORDIAZEPOXIDE 25 MG CAPSULE PO PRN (11:45)
[2019-09-25] MEDS ORDERED: POTASSIUM CHLORIDE 10% 40 MEQ/30 ML UDC PO ONE (13:30)
[2019-09-25] MEDS ORDERED: POTASSIUM CHLORIDE 10% 40 MEQ/30 ML UDC ONE (13:32)
[2019-09-25] MEDS: LORazepam 0.5MG TABLET PO PRN (13:40)
[2019-09-25 13:54] VITALS: BP 114/79
[2019-09-25 19:02] VITALS: BP 142/89
[2019-09-25] MEDS: NICOTINE 14MG/24 HR PATCH.TD24 TD SCH (19:30)
[2019-09-25] MEDS: QUETIAPINE 100MG TABLET PO SCH (19:59)
[2019-09-26] MEDS: CHLORDIAZEPOXIDE 25 MG CAPSULE PO PRN ×4 (01:00→22:35)
[2019-09-26 02:00] VITALS: BP 115/78
[2019-09-26] MEDS: ALBUTEROL SULFATE 2.5 MG/3 ML HHN SCH ×4 (03:11→20:31)
[2019-09-26 06:06] LABS: ANION GAP 7 mmol/L (5-15); CHLORIDE 106 mmol/L (98-107)
[2019-09-26 06:08] LABS: CREATININE 0.59 mg/dL (0.55-1.02)
[2019-09-26 06:18] LABS: MEAN CORPUSCULAR HEMOGLOBIN 32.9 pg (27.0-34.8); MEAN CORPUSCULAR HGB CONC 33.7 g/dL (32.4-35.8); MEAN CORPUSCULAR VOLUME 97.7 fL (80-100); MEAN PLATELET VOLUME 7.7 fL (7.4-10.4); PLATELET COUNT 96 x10^3/uL (130-400); RED BLOOD COUNT 3.83 x10^6/uL (3.82-5.3); RED CELL DISTRIBUTION WIDTH 13.7 % (9.6-15.2)
[2019-09-26 06:46] LABS: BASOPHILS # (AUTO) 0.02 x10^3/uL (0-0.1); BASOPHILS % (AUTO) 0 % (0-1); EOSINOPHILS # (AUTO) 0.36 x10^3/uL (0-0.4); EOSINOPHILS % (AUTO) 9 % (1-7); LYMPHOCYTES # (AUTO) 1.74 x10^3/uL (1-3.4); LYMPHOCYTES % (AUTO) 45 % (22-44); MD SCAN; MONOCYTES % (AUTO) 8 % (2-9); NEUTROPHILS # (AUTO) 1.49 x10^3/uL (1.8-6.8); NEUTROPHILS % (AUTO) 38 % (42-75)
[2019-09-26 07:45] VITALS: BP 131/82
[2019-09-26] MEDS: FOLIC ACID 1 MG TABLET PO SCH (08:44)
[2019-09-26] MEDS: THIAMINE 100MG TABLET PO SCH ×2 (08:44→20:29)
[2019-09-26] MEDS: VENLAFAXINE XR 37.5MG CAP.ER.24H PO SCH (08:44)
[2019-09-26] MEDS: ONDANSETRON 2MG/ML, 2ML IVPush PRN (08:44)
[2019-09-26] MEDS: GABAPENTIN 400 MG CAPSULE PO SCH ×3 (08:44→20:29)
[2019-09-26] MEDS: MULTIVITAMINS/MINERALS TABLET PO SCH (08:44)
[2019-09-26] MEDS: SENNA/DOCUSATE TABLET PO SCH (08:45)
[2019-09-26] MEDS: BUDESONIDE 0.5 MG/2 ML INHA HHN SCH ×2 (09:00→20:31)
[2019-09-26] MEDS ORDERED: POTASSIUM PHOSPHATE 44 MEQ in SODIUM CHLORIDE 0.9% 500 ML IV ONE (09:00)
[2019-09-26] MEDS ORDERED: POTASSIUM CHLORIDE 20 MEQ in SODIUM CHLORIDE 0.9% 250 ML IV ONE (09:00)
[2019-09-26] MEDS: LORazepam 2 MG/ML, 1ML IV PRN ×3 (10:12→19:33)
[2019-09-26] MEDS: LIDODERM REMOVE PATCH NOTE XX SCH ×2 (10:18→21:46)
[2019-09-26] MEDS ORDERED: BUDE0.5A HHN (11:02)
[2019-09-26] MEDS ORDERED: FOLI-17 PO (11:02)
[2019-09-26] MEDS ORDERED: MULT-484 PO (11:02)
[2019-09-26] MEDS ORDERED: THIA100T67 PO (11:02)
[2019-09-26] MEDS ORDERED: SIMETHICONE 80 MG CHEW TAB PO ONE (11:30)
[2019-09-26] MEDS ORDERED: SIMETHICONE 125 MG CHEW TAB PO ONE (11:30)
[2019-09-26] MEDS ORDERED: POTASSIUM CHLORIDE 10% 20 MEQ/15 ML UDC PO ONE (11:30)
[2019-09-26 12:47] VITALS: BP 130/94
[2019-09-26 19:15] VITALS: BP 123/80
[2019-09-26] MEDS: NICOTINE 14MG/24 HR PATCH.TD24 TD SCH (19:33)
[2019-09-26] MEDS: LIDODERM 5% PATCH TD PRN (20:28)
[2019-09-26] MEDS: QUETIAPINE 100MG TABLET PO SCH (20:29)
[2019-09-26] MEDS: LORazepam 0.5MG TABLET PO PRN (23:39)
[2019-09-27 00:44] VITALS: BP 109/72
[2019-09-27] MEDS: ALBUTEROL SULFATE 2.5 MG/3 ML HHN SCH (02:47)
[2019-09-27] MEDS: CHLORDIAZEPOXIDE 25 MG CAPSULE PO PRN ×2 (03:31→09:34)
[2019-09-27] MEDS: LORazepam 2 MG/ML, 1ML IV PRN (05:09)
[2019-09-27 07:08] VITALS: BP 131/87
[2019-09-27] MEDS: MULTIVITAMINS/MINERALS TABLET PO SCH (08:49)
[2019-09-27] MEDS: LIDODERM REMOVE PATCH NOTE XX SCH (08:50)
[2019-09-27] MEDS: FOLIC ACID 1 MG TABLET PO SCH (08:50)
[2019-09-27] MEDS: VENLAFAXINE XR 37.5MG CAP.ER.24H PO SCH (08:50)
[2019-09-27] MEDS: THIAMINE 100MG TABLET PO SCH (08:50)
[2019-09-27] MEDS: GABAPENTIN 400 MG CAPSULE PO SCH (08:50)
[2019-09-27] MEDS: SENNA/DOCUSATE TABLET PO SCH (08:54)
[2019-09-27] MEDS ORDERED: ALBUTEROL SULFATE 2.5 MG/3 ML HHN PRN (12:30)
[2019-09-27 12:45] VITALS: BP 137/91
== END 2019-09-27 13:55 | disposition home or self-care (01) | DRG 469 ==
LOC: ED 17:52 → EDIP 18:34 → 4WST 20:22
PROVIDERS: ADMIT Internal Medicine; ATTEND Hospitalist
DX: N17.0 Acute kidney failure with tubular necrosis (principal); E87.2 Acidosis; D75.1 Secondary polycythemia; E83.42 Hypomagnesemia; E87.1 Hypo-osmolality and hyponatremia; E86.1 Hypovolemia; E87.6 Hypokalemia; F17.210 Nicotine dependence, cigarettes, uncomplicated; F32.9 Major depressive disorder, single episode, unspecified; I10 Essential (primary) hypertension; J45.909 Unspecified asthma, uncomplicated; K21.9 Gastro-esophageal reflux disease without esophagitis; L30.9 Dermatitis, unspecified; F10.239 Alcohol dependence with withdrawal, unspecified; M19.90 Unspecified osteoarthritis, unspecified site; Z82.5 Family history of asthma and other chronic lower respiratory diseases; Z90.710 Acquired absence of both cervix and uterus; Z79.899 Other long term (current) drug therapy; Y90.9 Presence of alcohol in blood, level not specified
CPT/HCPCS: 36415; 76700; 80048; 80053; 81003; 82436; 82570; 83690; 83735; 84100; 84132; 84133; 84300; 85025; 94640; 99285; G0378; J2405; J3411; J3475; J3480; J7613; J7626; C9113; J2060; J2270; J7030; J7040; J7050

== ENCOUNTER 2019-10-21 10:07 | Emergency (ER) | payer MEDICAID ==
[~2019-10-21] VITALS: Ht 175.3 cm; Wt 81.0 kg
[~2019-10-21 10:07] MED LIST changes: +BUDE0.5A HHN; +MULT-484 PO
[2019-10-21] MEDS ORDERED: ONDANSETRON ODT 4 MG ONE (10:35)
[2019-10-21] MEDS ORDERED: ONDANSETRON 2MG/ML, 2ML ONE (10:58)
[2019-10-21] MEDS ORDERED: LORazepam 2 MG/ML, 1ML ONE (10:59)
[2019-10-21] MEDS ORDERED: FAMOTIDINE 20 MG/2 ML ONE (10:59)
[2019-10-21] MEDS ORDERED: ONDANSETRON 2MG/ML, 2ML IVPush ONE (11:00)
[2019-10-21] MEDS ORDERED: SODIUM CHLORIDE FLUSH 10ML SYR IVF ONE (11:00)
[2019-10-21] MEDS ORDERED: FAMOTIDINE 20 MG/2 ML IVPush ONE (11:00)
[2019-10-21] MEDS ORDERED: SODIUM CHLORIDE 0.9% 1,000ML IVBOLUS ONE (11:00)
[2019-10-21] MEDS ORDERED: LORazepam 2 MG/ML, 1ML IVPush ONE (11:00)
[2019-10-21 11:02] LABS: BASOPHILS # (AUTO) 0.06 x10^3/uL (0-0.1); BASOPHILS % (AUTO) 1 % (0-1); EOSINOPHILS # (AUTO) 0.13 x10^3/uL (0-0.4); EOSINOPHILS % (AUTO) 1 % (1-7); LYMPHOCYTES # (AUTO) 1.37 x10^3/uL (1-3.4); LYMPHOCYTES % (AUTO) 14 % (22-44); MD NO; MEAN CORPUSCULAR HEMOGLOBIN 32.6 pg (27.0-34.8); MEAN CORPUSCULAR HGB CONC 33.7 g/dL (32.4-35.8); MEAN CORPUSCULAR VOLUME 96.9 fL (80-100); MEAN PLATELET VOLUME 7.4 fL (7.4-10.4); MONOCYTES % (AUTO) 8 % (2-9); NEUTROPHILS # (AUTO) 7.49 x10^3/uL (1.8-6.8); NEUTROPHILS % (AUTO) 76 % (42-75); PLATELET COUNT 270 x10^3/uL (130-400); RED BLOOD COUNT 5.23 x10^6/uL (3.82-5.3); RED CELL DISTRIBUTION WIDTH 14.6 % (9.6-15.2)
--- NOTE | 2019-10-21 11:02 | NUR ---
IV ESTABLISHED AND MEDICATED FOR ACTIVE VOMITING, EPIGASTRIC PAIN AND ANXIETY WITH IV BOLUS INFUSING NOTED ON AUG. ULTRASOUND AT BEDSIDE.
[2019-10-21 11:47] LABS: ALANINE AMINOTRANSFERASE 19 U/L (12-78); ALBUMIN 3.6 g/dL (3.4-5.0); ANION GAP 11 mmol/L (5-15); CALCIUM 9.4 mg/dL (8.5-10.1); CHLORIDE 98 mmol/L (98-107); CREATININE 0.89 mg/dL (0.55-1.02)
[2019-10-21 11:51] LABS: ALKALINE PHOSPHATASE 158 U/L (45-117); BILIRUBIN,TOTAL 0.7 mg/dL (0.2-1.0); TOTAL PROTEIN 8.5 g/dL (6.4-8.2); TROPONIN I < 0.015 ng/mL (0.000-0.045)
[2019-10-21 12:11] VITALS: BP 127/85
--- NOTE | 2019-10-21 12:39 | NUR ---
NO LONGER VOMITING AND SAYS HER RIBS DON'T HURT ANY LONGER. TOLERATING PO. PROVIDED DISCHARGE
== END 2019-10-21 12:41 | disposition home or self-care (01) ==
LOC: ED 10:19
DX: K29.20 Alcoholic gastritis without bleeding (principal); R10.13 Epigastric pain; F10.10 Alcohol abuse, uncomplicated; F41.1 Generalized anxiety disorder; R00.0 Tachycardia, unspecified; Y90.0 Blood alcohol level of less than 20 mg/100 ml
CPT/HCPCS: 36415; 71045; 76700; 80053; 80307; 83690; 84484; 85025; 93005; 96361; 96374; 96375; 99285; J2060; J2405; J3490; J7030